=== PATIENT | female | born 1955 | race Caucasian/White ===

== ENCOUNTER 2020-09-13 09:30 | Inpatient (IN) | payer MEDICAID ==
[~2020-09-13] VITALS: Ht 162.6 cm; Wt 47.4 kg
[2020-09-13] MEDS ORDERED: IPRATROPIUM BROMIDE (0.02%) 0.5MG/2.5ML NEB HHN STA (10:14)
[2020-09-13] MEDS ORDERED: METHYLPREDNISOLONE SOD SUCC 125 MG/2 ML VIAL IV STA (10:14)
[2020-09-13] MEDS ORDERED: ALBUTEROL (0.083%) 2.5MG/3ML NEB HHN STA (10:14)
[2020-09-13 11:13] LABS: BG BASE EXCESS -0.3 mmol/L (-2.0-2.0); BG CARBOXYHEMOGLOBIN 0.5 % (0.5-1.5); BG FRACTION INSPIRED OXYGEN 100; BG HCO3 ACT 23.1 mmol/L (22.0-26.0); BG OXYHEMOGLOBIN 97.5 % (94.0-97.0); BG PCO2 33.3 mmHg (35.0-45.0); BG PH 7.459 (7.350-7.450); BG PO2 143.2 mmHg (75.0-100.0); BG SAMPLE SITE LEFT BRACHIAL; BG TOTAL HEMOGLOBIN 11.2 g/dL (12.0-18.0); BG VENT MODE MASK - NRB
[2020-09-13 11:39] LABS: BASOPHILS % 0.5 % (0.0-2.0); EOSINOPHILS % 0.5 % (0.0-5.0); HEMATOCRIT. 33.9 % (36.0-48.0); HEMOGLOBIN. 11.3 g/dL (12.0-16.0); LYMPHOCYTES % 12.9 % (20.0-50.0); MEAN CORPUSCULAR HEMOGLOBIN 27.3 pg (28.0-32.0); MEAN CORPUSCULAR VOLUME 81.5 fL (81.0-99.0); MEAN PLATELET VOLUME 7.3 fl (7.4-10.4); MONOCYTES % 8.3 % (2.0-8.0); NEUTROPHILS % 77.8 % (40.0-76.0); PLATELET 419 x1000/uL (130-400); RED BLOOD CELL COUNT 4.15 mill/uL (4.2-5.4); RED CELL DISTRIBUTION WIDTH 13.1 % (11.6-14.6)
[2020-09-13 11:44] LABS: CHLORIDE 101 mEq/L (98-107)
[2020-09-13] MEDS ORDERED: CEFTRIAXONE 1 G PREMIX 50 ML IV ONE (11:45)
[2020-09-13] MEDS ORDERED: AZITHROMYCIN 500 MG in DEXT 5% WATER 250 ML IV ONE (11:45)
[2020-09-13] MEDS ORDERED: ONDANSETRON HCL 4MG/2ML INJ IV PRN (14:45)
[2020-09-13] MEDS ORDERED: HYDROCODONE/ACETAMINOPHEN 5/325MG TABLET PO PRN (14:45)
[2020-09-13] MEDS ORDERED: DOCUSATE SODIUM 100MG CAPSULE PO PRN (14:45)
[2020-09-13] MEDS ORDERED: ACETAMINOPHEN 325MG TABLET PO PRN (14:45)
[2020-09-13] MEDS ORDERED: LORAZEPAM 0.5MG TABLET PO PRN (14:45)
[2020-09-13] MEDS ORDERED: CLONIDINE 0.1MG TABLET PO PRN (14:45)
[2020-09-13] MEDS: DEXAMETHASONE 10 MG/ML VIAL IV SCH (15:26)
[2020-09-13] MEDS: ASCORBIC ACID 500 MG TABLET PO SCH (20:51)
[2020-09-14] MEDS: BLOOD SUGAR DIAGNOSTIC STRIP TEST SCH ×5 (00:21→21:01)
[2020-09-14] MEDS ORDERED: DEXTROSE 50% WATER 50ML SYRINGE IV PRN (00:30)
[2020-09-14] MEDS ORDERED: INSULIN LISPRO 100 UNITS/ML SUBCUT NR (01:15)
[2020-09-14] MEDS: INSULIN LISPRO (LOW DOSE) 100 UNITS/ML SUBCUT SCH ×3 (01:15→13:21)
[2020-09-14] MEDS: ERGOCALCIFEROL 50000UNITS CAPSULE PO SCH (01:30)
[2020-09-14 03:30] VITALS: BP 145/82
[2020-09-14] MEDS ORDERED: METF-416 PO (05:47)
[2020-09-14 07:35] LABS: HEMATOCRIT. 31.7 % (36.0-48.0); HEMOGLOBIN. 10.3 g/dL (12.0-16.0); MEAN CORPUSCULAR HEMOGLOBIN 26.6 pg (28.0-32.0); MEAN CORPUSCULAR VOLUME 81.4 fL (81.0-99.0); MEAN PLATELET VOLUME 7.3 fl (7.4-10.4); PLATELET 383 x1000/uL (130-400); RED BLOOD CELL COUNT 3.89 mill/uL (4.2-5.4); RED CELL DISTRIBUTION WIDTH 13.9 % (11.6-14.6)
[2020-09-14 07:47] LABS: CHLORIDE 106 mEq/L (98-107)
[2020-09-14 07:53] LABS: PHOSPHORUS 3.7 mg/dL (2.5-4.9)
[2020-09-14 07:54] LABS: LDL CHOLESTEROL 78 mg/dL (5-100)
[2020-09-14 07:55] LABS: TOTAL IRON BINDING CAPACITY 255 ug/dL (250-450)
[2020-09-14 07:56] LABS: HDL CHOLESTEROL 34 mg/dL (40-59)
[2020-09-14 08:00] VITALS: BP_SYST 132; BP_SYST 161; BP_DIAS 77
[2020-09-14 08:06] LABS: FOLIC ACID (FOLATE) SERUM >20 ng/mL ng/mL (>5.38)
[2020-09-14 08:18] LABS: VITAMIN B12 SERUM 819 pg/mL (211-911)
[2020-09-14] MEDS: DEXAMETHASONE 10 MG/ML VIAL IV SCH (09:05)
[2020-09-14] MEDS: ASCORBIC ACID 500 MG TABLET PO SCH ×2 (09:05→20:59)
[2020-09-14 09:56] LABS: BG BASE EXCESS -4.7 mmol/L (-2.0-2.0); BG CARBOXYHEMOGLOBIN 0.1 % (0.5-1.5); BG DEOXYHEMOGLOBIN 9.8 % (0.0-5.0); BG FRACTION INSPIRED OXYGEN 36; BG HCO3 ACT 19.2 mmol/L (22.0-26.0); BG METHEMOGLOBIN 0.3 % (0.0-1.5); BG OXYGEN SATURATION 90.2 % (92.0-98.5); BG OXYHEMOGLOBIN 89.8 % (94.0-97.0); BG PCO2 31.4 mmHg (35.0-45.0); BG PH 7.404 (7.350-7.450); BG PO2 60.1 mmHg (75.0-100.0); BG SAMPLE SITE RIGHT RADIAL; BG TOTAL HEMOGLOBIN 10.6 g/dL (12.0-18.0); BG VENT MODE NASAL CANNULA
[2020-09-14 10:18] LABS: FERRITIN 720 ng/mL (10-291)
[2020-09-14 12:00] VITALS: BP_SYST 115; BP_SYST 161; BP_DIAS 66
[2020-09-14] MEDS ORDERED: CEFTRIAXONE 1 G PREMIX 50 ML IV SCH (12:30)
[2020-09-14] MEDS ORDERED: AZITHROMYCIN 500 MG in DEXT 5% WATER 250 ML IV SCH (13:00)
[2020-09-14 14:35] LABS: PLATELET ESTIMATE NORMAL
[2020-09-14] MEDS: ENOXAPARIN 40MG/0.4ML SYR SUBCUT SCH (15:18)
[2020-09-14] MEDS: CEFTRIAXONE 1,000 MG in DEXTROSE 5% WATER 50 ML IV SCH (15:18)
[2020-09-14] MEDS: AZITHROMYCIN 500MG in DEXTROSE 5% WATER 250ML IV SCH (16:55)
[2020-09-14] MEDS: INSULIN LISPRO 100 UNITS/ML SUBCUT SCH ×2 (18:07→21:00)
[2020-09-14 19:30] VITALS: BP_SYST 161
[2020-09-14 20:00] VITALS: BP 139/81
[2020-09-15] VITALS: BP 116/70
[2020-09-15 04:00] VITALS: BP_SYST 106; BP_SYST 145; BP_DIAS 55; BP_DIAS 80
[2020-09-15] MEDS: BLOOD SUGAR DIAGNOSTIC STRIP TEST SCH ×4 (06:11→21:52)
[2020-09-15 06:51] LABS: T4 FREE 1.83 ng/dL (0.76-1.46)
[2020-09-15 08:00] VITALS: BP 129/73
[2020-09-15] MEDS: ASCORBIC ACID 500 MG TABLET PO SCH ×2 (08:57→20:39)
[2020-09-15] MEDS: DEXAMETHASONE 10 MG/ML VIAL IV SCH (08:57)
[2020-09-15] MEDS: INSULIN LISPRO 100 UNITS/ML SUBCUT SCH ×3 (08:58→22:53)
[2020-09-15] MEDS: ACETAMINOPHEN 325MG TABLET PO PRN (09:14)
[2020-09-15 12:00] VITALS: BP 159/82
[2020-09-15] MEDS ORDERED: SODIUM CHLORIDE 0.9% 1,000 ML IV ONE (12:00)
[2020-09-15] MEDS: CEFTRIAXONE 1,000 MG in DEXTROSE 5% WATER 50 ML IV SCH (12:46)
[2020-09-15] MEDS: AZITHROMYCIN 500MG in DEXTROSE 5% WATER 250ML IV SCH (13:40)
[2020-09-15] MEDS ORDERED: GUAIFENESIN-DM 200MG-20MG/10ML UDC PO PRN (14:15)
[2020-09-15] MEDS: ENOXAPARIN 40MG/0.4ML SYR SUBCUT SCH (15:31)
[2020-09-15] MEDS: INSULIN GLARGINE UD 100 UNITS/ML SYR SUBCUT SCH (15:33)
[2020-09-15 16:00] VITALS: BP 145/85
[2020-09-15 20:00] VITALS: BP 140/84
[2020-09-15] MEDS ORDERED: IOHEXOL-350 100 ML BOTTLE ONE (20:11)
[2020-09-15] MEDS: ENOXAPARIN 60MG/0.6ML SYR SUBCUT SCH (20:39)
[2020-09-16] VITALS: BP 126/79
[2020-09-16 04:00] VITALS: BP 136/77
[2020-09-16 06:30] LABS: HEMATOCRIT. 33.5 % (36.0-48.0); HEMOGLOBIN. 11.2 g/dL (12.0-16.0); INR 1.2; LYMPHOCYTES % 8.1 % (20.0-50.0); MEAN CORPUSCULAR HEMOGLOBIN 27.1 pg (28.0-32.0); MEAN PLATELET VOLUME 7.3 fl (7.4-10.4); MONOCYTES % 4.8 % (2.0-8.0); NEUTROPHILS % 87.1 % (40.0-76.0); PLATELET 408 x1000/uL (130-400); PROTHROMBIN TIME 12.3 sec (9.6-11.0); RED BLOOD CELL COUNT 4.14 mill/uL (4.2-5.4); RED CELL DISTRIBUTION WIDTH 13.5 % (11.6-14.6)
[2020-09-16] MEDS: INSULIN LISPRO 100 UNITS/ML SUBCUT SCH ×4 (06:34→20:39)
[2020-09-16] MEDS: BLOOD SUGAR DIAGNOSTIC STRIP TEST SCH ×4 (06:34→20:39)
[2020-09-16 06:39] LABS: CHLORIDE 101 mEq/L (98-107)
[2020-09-16 08:00] VITALS: BP 125/79
[2020-09-16] MEDS: DEXAMETHASONE 10 MG/ML VIAL IV SCH (09:27)
[2020-09-16] MEDS: ASCORBIC ACID 500 MG TABLET PO SCH ×2 (09:27→20:37)
[2020-09-16] MEDS: ACETAMINOPHEN 325MG TABLET PO PRN (09:27)
[2020-09-16] MEDS: ENOXAPARIN 60MG/0.6ML SYR SUBCUT SCH ×2 (09:27→20:37)
[2020-09-16] MEDS: INSULIN GLARGINE UD 100 UNITS/ML SYR SUBCUT SCH (10:42)
[2020-09-16] MEDS ORDERED: SODIUM CHLORIDE 0.9% 1,000 ML IV ONE (12:00)
[2020-09-16 12:10] VITALS: BP 131/68
[2020-09-16] MEDS: CEFTRIAXONE 1,000 MG in DEXTROSE 5% WATER 50 ML IV SCH (13:43)
[2020-09-16] MEDS: AZITHROMYCIN 500MG in DEXTROSE 5% WATER 250ML IV SCH (13:44)
[2020-09-16 16:01] VITALS: BP 128/93
[2020-09-16 20:00] VITALS: BP 128/78
[2020-09-17] VITALS: BP 129/82
[2020-09-17 04:00] VITALS: BP 126/67
[2020-09-17 06:11] LABS: CHLORIDE 100 mEq/L (98-107)
[2020-09-17 06:20] LABS: BASOPHILS % 0.3 % (0.0-2.0); HEMATOCRIT. 33.5 % (36.0-48.0); HEMOGLOBIN. 11.2 g/dL (12.0-16.0); LYMPHOCYTES % 9.7 % (20.0-50.0); MEAN CORPUSCULAR HEMOGLOBIN 27.2 pg (28.0-32.0); MEAN CORPUSCULAR VOLUME 81.4 fL (81.0-99.0); MEAN PLATELET VOLUME 7.5 fl (7.4-10.4); MONOCYTES % 6.8 % (2.0-8.0); NEUTROPHILS % 83.2 % (40.0-76.0); PLATELET 373 x1000/uL (130-400); RED BLOOD CELL COUNT 4.12 mill/uL (4.2-5.4); RED CELL DISTRIBUTION WIDTH 13.6 % (11.6-14.6)
[2020-09-17] MEDS: BLOOD SUGAR DIAGNOSTIC STRIP TEST SCH ×4 (07:26→21:38)
[2020-09-17] MEDS: INSULIN LISPRO 100 UNITS/ML SUBCUT SCH ×4 (08:10→21:39)
[2020-09-17] MEDS: DEXAMETHASONE 10 MG/ML VIAL IV SCH (09:21)
[2020-09-17] MEDS: ENOXAPARIN 60MG/0.6ML SYR SUBCUT SCH ×2 (09:22→21:40)
[2020-09-17] MEDS: ACETAMINOPHEN 325MG TABLET PO PRN (10:44)
[2020-09-17] MEDS: INSULIN GLARGINE UD 100 UNITS/ML SYR SUBCUT SCH (10:45)
[2020-09-17] MEDS: ASCORBIC ACID 500 MG TABLET PO SCH ×2 (11:08→21:39)
[2020-09-17 12:00] VITALS: BP 144/62
[2020-09-17] MEDS: CEFTRIAXONE 1,000 MG in DEXTROSE 5% WATER 50 ML IV SCH (13:54)
[2020-09-17] MEDS: AZITHROMYCIN 500MG in DEXTROSE 5% WATER 250ML IV SCH (13:54)
[2020-09-17 15:55] VITALS: BP 126/72
[2020-09-17 16:00] VITALS: BP 126/73
[2020-09-17 20:00] VITALS: BP 118/55
[2020-09-17 20:50] LABS: HEMATOCRIT. 33.1 % (36.0-48.0); LYMPHOCYTES % 8.8 % (20.0-50.0); MEAN CORPUSCULAR HEMOGLOBIN 27.4 pg (28.0-32.0); MEAN CORPUSCULAR VOLUME 82.2 fL (81.0-99.0); MEAN PLATELET VOLUME 7.3 fl (7.4-10.4); MONOCYTES % 7.4 % (2.0-8.0); NEUTROPHILS % 83.8 % (40.0-76.0); PLATELET 371 x1000/uL (130-400); RED BLOOD CELL COUNT 4.03 mill/uL (4.2-5.4); RED CELL DISTRIBUTION WIDTH 13.7 % (11.6-14.6)
[2020-09-17 20:52] LABS: CHLORIDE 97 mEq/L (98-107)
[2020-09-18] VITALS: BP 129/72
[2020-09-18 04:00] VITALS: BP 134/74
[2020-09-18] MEDS: BLOOD SUGAR DIAGNOSTIC STRIP TEST SCH ×4 (06:45→20:48)
[2020-09-18 08:00] VITALS: BP 130/74
[2020-09-18] MEDS: INSULIN LISPRO 100 UNITS/ML SUBCUT SCH ×4 (08:10→20:47)
[2020-09-18] MEDS: INSULIN GLARGINE UD 100 UNITS/ML SYR SUBCUT SCH (09:51)
[2020-09-18] MEDS: ENOXAPARIN 60MG/0.6ML SYR SUBCUT SCH ×2 (09:51→20:50)
[2020-09-18] MEDS: ASCORBIC ACID 500 MG TABLET PO SCH ×2 (09:51→20:48)
[2020-09-18] MEDS: DEXAMETHASONE 10 MG/ML VIAL IV SCH (09:51)
[2020-09-18 12:00] VITALS: BP 120/59
[2020-09-18] MEDS ORDERED: FUROSEMIDE 40MG/4ML VIAL IVP NR (15:30)
[2020-09-18 16:00] VITALS: BP 123/67
[2020-09-18 20:00] VITALS: BP 129/59
[2020-09-18] MEDS: ACETAMINOPHEN 325MG TABLET PO PRN (20:54)
[2020-09-19] VITALS: BP 121/66
[2020-09-19 04:00] VITALS: BP 121/64
[2020-09-19 07:01] LABS: BASOPHILS % 0.3 % (0.0-2.0); HEMATOCRIT. 33.8 % (36.0-48.0); HEMOGLOBIN. 11.5 g/dL (12.0-16.0); MEAN CORPUSCULAR HEMOGLOBIN 27.4 pg (28.0-32.0); MEAN CORPUSCULAR VOLUME 80.4 fL (81.0-99.0); MEAN PLATELET VOLUME 7.5 fl (7.4-10.4); MONOCYTES % 8.7 % (2.0-8.0); PLATELET 481 x1000/uL (130-400); RED CELL DISTRIBUTION WIDTH 13.5 % (11.6-14.6)
[2020-09-19 07:17] LABS: CHLORIDE 99 mEq/L (98-107)
[2020-09-19] MEDS: BLOOD SUGAR DIAGNOSTIC STRIP TEST SCH ×4 (07:40→21:46)
[2020-09-19 08:00] VITALS: BP 115/67
[2020-09-19] MEDS: ENOXAPARIN 60MG/0.6ML SYR SUBCUT SCH ×2 (09:02→20:40)
[2020-09-19] MEDS: DEXAMETHASONE 10 MG/ML VIAL IV SCH (09:03)
[2020-09-19] MEDS: ASCORBIC ACID 500 MG TABLET PO SCH ×2 (09:04→20:41)
[2020-09-19] MEDS: INSULIN LISPRO 100 UNITS/ML SUBCUT SCH ×4 (09:06→21:58)
[2020-09-19] MEDS: ACETAMINOPHEN 325MG TABLET PO PRN (09:22)
[2020-09-19] MEDS ORDERED: INSULIN GLARGINE UD 100 UNITS/ML SYR SUBCUT SCH (10:00)
[2020-09-19 12:00] VITALS: BP 120/65
[2020-09-19 16:00] VITALS: BP 125/65
[2020-09-19 20:00] VITALS: BP 120/62
[2020-09-19] MEDS: INSULIN GLARGINE UD 100 UNITS/ML SYR SUBCUT SCH (21:58)
[2020-09-20 00:16] VITALS: BP 112/56
[2020-09-20 04:00] VITALS: BP 136/66
[2020-09-20] MEDS: ACETAMINOPHEN 325MG TABLET PO PRN (05:17)
[2020-09-20] MEDS: BLOOD SUGAR DIAGNOSTIC STRIP TEST SCH ×4 (07:44→21:25)
[2020-09-20 08:00] VITALS: BP 136/71
[2020-09-20] MEDS: ERGOCALCIFEROL 50000UNITS CAPSULE PO SCH (09:02)
[2020-09-20] MEDS: ENOXAPARIN 60MG/0.6ML SYR SUBCUT SCH ×2 (09:02→20:47)
[2020-09-20] MEDS: DEXAMETHASONE 10 MG/ML VIAL IV SCH (09:03)
[2020-09-20] MEDS: ASCORBIC ACID 500 MG TABLET PO SCH ×2 (09:03→20:48)
[2020-09-20] MEDS: INSULIN LISPRO 100 UNITS/ML SUBCUT SCH ×4 (09:04→21:25)
[2020-09-20] MEDS: INSULIN GLARGINE UD 100 UNITS/ML SYR SUBCUT SCH ×2 (09:04→21:24)
[2020-09-20 12:00] VITALS: BP 131/59
[2020-09-20 16:00] VITALS: BP 114/57
[2020-09-20 20:00] VITALS: BP 118/65
[2020-09-21] VITALS: BP 133/58
[2020-09-21 04:58] VITALS: BP 138/53
[2020-09-21] MEDS: BLOOD SUGAR DIAGNOSTIC STRIP TEST SCH ×4 (07:40→21:02)
[2020-09-21 08:00] VITALS: BP 121/63
[2020-09-21] MEDS: DEXAMETHASONE 10 MG/ML VIAL IV SCH (08:53)
[2020-09-21] MEDS: ASCORBIC ACID 500 MG TABLET PO SCH ×2 (08:54→21:02)
[2020-09-21] MEDS: ENOXAPARIN 60MG/0.6ML SYR SUBCUT SCH ×2 (08:54→21:02)
[2020-09-21] MEDS: INSULIN LISPRO 100 UNITS/ML SUBCUT SCH ×3 (08:59→23:08)
[2020-09-21] MEDS: INSULIN GLARGINE UD 100 UNITS/ML SYR SUBCUT SCH ×2 (09:55→21:16)
[2020-09-21 12:00] VITALS: BP 105/68
[2020-09-21 16:00] VITALS: BP 113/56
[2020-09-21 17:24] LABS: BG BASE EXCESS 1.6 mmol/L (-2.0-2.0); BG CARBOXYHEMOGLOBIN 0.8 % (0.5-1.5); BG DEOXYHEMOGLOBIN 8.4 % (0.0-5.0); BG FRACTION INSPIRED OXYGEN 21; BG HCO3 ACT 25.5 mmol/L (22.0-26.0); BG METHEMOGLOBIN 0.3 % (0.0-1.5); BG OXYGEN SATURATION 91.5 % (92.0-98.5); BG OXYHEMOGLOBIN 90.5 % (94.0-97.0); BG PCO2 37.6 mmHg (35.0-45.0); BG PH 7.449 (7.350-7.450); BG PO2 61.3 mmHg (75.0-100.0); BG SAMPLE SITE RIGHT BRACHIAL; BG TOTAL HEMOGLOBIN 12.3 g/dL (12.0-18.0); BG VENT MODE ROOM AIR
[2020-09-21 20:00] VITALS: BP 127/64
[2020-09-22] VITALS: BP 121/67
[2020-09-22 04:00] VITALS: BP 114/63
[2020-09-22] MEDS: BLOOD SUGAR DIAGNOSTIC STRIP TEST SCH ×4 (07:40→20:58)
[2020-09-22] MEDS: ENOXAPARIN 60MG/0.6ML SYR SUBCUT SCH ×2 (08:00→20:57)
[2020-09-22] MEDS: DEXAMETHASONE 10 MG/ML VIAL IV SCH (10:37)
[2020-09-22] MEDS: ASCORBIC ACID 500 MG TABLET PO SCH ×2 (10:37→20:57)
[2020-09-22] MEDS: INSULIN GLARGINE UD 100 UNITS/ML SYR SUBCUT SCH ×2 (10:39→21:02)
[2020-09-22 12:00] VITALS: BP 128/68
[2020-09-22] MEDS: INSULIN LISPRO 100 UNITS/ML SUBCUT SCH ×3 (13:59→21:02)
[2020-09-22 16:00] VITALS: BP 123/63
[2020-09-22] MEDS: ACETAMINOPHEN 325MG TABLET PO PRN (18:23)
[2020-09-22 20:00] VITALS: BP 110/59
[2020-09-23] VITALS (7 sets, daily range): BP systolic 99–135; BP diastolic 54–72
[2020-09-23 06:54] LABS: BASOPHILS % 0.2 % (0.0-2.0); HEMATOCRIT. 36.7 % (36.0-48.0); HEMOGLOBIN. 12.1 g/dL (12.0-16.0); LYMPHOCYTES % 15.6 % (20.0-50.0); MEAN CORPUSCULAR HEMOGLOBIN 27.1 pg (28.0-32.0); MEAN PLATELET VOLUME 7.6 fl (7.4-10.4); MONOCYTES % 6.6 % (2.0-8.0); NEUTROPHILS % 77.6 % (40.0-76.0); PLATELET 509 x1000/uL (130-400); RED BLOOD CELL COUNT 4.48 mill/uL (4.2-5.4)
[2020-09-23 07:19] LABS: CHLORIDE 98 mEq/L (98-107)
[2020-09-23] MEDS: BLOOD SUGAR DIAGNOSTIC STRIP TEST SCH ×3 (07:40→17:42)
[2020-09-23] MEDS: ASCORBIC ACID 500 MG TABLET PO SCH (08:47)
[2020-09-23] MEDS: ENOXAPARIN 60MG/0.6ML SYR SUBCUT SCH (08:47)
[2020-09-23] MEDS: INSULIN LISPRO 100 UNITS/ML SUBCUT SCH ×3 (08:48→18:00)
[2020-09-23] MEDS: INSULIN GLARGINE UD 100 UNITS/ML SYR SUBCUT SCH (10:16)
[2020-09-23] MEDS ORDERED: APIX5TAB MT (15:42)
== END 2020-09-23 22:27 | disposition home or self-care (01) | DRG 720 ==
LOC: ER 09:47 → MICUSO 12:14 → EDBEDREQ 12:17 → 8WST 23:08 → 7WST 09-16 11:37
PROVIDERS: ADMIT Internal Medicine; ATTEND Internal Medicine
DX: A41.89 Other specified sepsis (principal); U07.1 COVID-19; J96.01 Acute respiratory failure with hypoxia; I26.99 Other pulmonary embolism without acute cor pulmonale; J12.82 Pneumonia due to coronavirus disease 2019; J20.8 Acute bronchitis due to other specified organisms; J15.9 Unspecified bacterial pneumonia; E11.65 Type 2 diabetes mellitus with hyperglycemia; D64.9 Anemia, unspecified; Z79.84 Long term (current) use of oral hypoglycemic drugs
CPT/HCPCS: 36415; 36600; 71045; 71275; 80048; 80053; 80061; 82375; 82607; 82728; 82746; 82805; 82962; 83036; 83540; 83550; 83615; 83735; 83880; 84100; 84145; 84439; 84443; 84481; 84484; 85025; 85379; 86140; 93005; 96365; 99291; C9803; J0456; J0696; J1100; J1650; J1815; J1940; J2930; J7030; J7060; Q9967; U0003